=== PATIENT | male | born 1950 ===

== ENCOUNTER → 2016-08-08 | Outpatient (REF) ==
[2016-08-08 10:36] LABS: INR 1.1 (0.8-3.0); PROTHROMBIN TIME 12.6 SECONDS (9.7-12.8)
== END ==
LOC: ZMSC 10:20
PROVIDERS: Orthopaedic Surgery
DX: Z01.89 Encounter for other specified special examinations (principal)

== ENCOUNTER → 2016-08-09 | Outpatient (REF) ==
[2016-08-09 06:26] LABS: INR 1.2 (0.8-3.0); PROTHROMBIN TIME 13.9 SECONDS (9.7-12.8)
== END ==
LOC: ZMSC 06:20
PROVIDERS: Orthopaedic Surgery
DX: Z01.89 Encounter for other specified special examinations (principal)

== ENCOUNTER → 2016-08-10 | Outpatient (REF) ==
[2016-08-10 05:46] LABS: INR 1.2 (0.8-3.0); PROTHROMBIN TIME 13.9 SECONDS (9.7-12.8)
== END ==
LOC: ZMSC 05:34
PROVIDERS: Orthopaedic Surgery
DX: Z01.89 Encounter for other specified special examinations (principal)

== ENCOUNTER → 2016-08-11 | Outpatient (REF) ==
[2016-08-11 05:30] LABS: INR 1.4 (0.8-3.0); PROTHROMBIN TIME 15.8 SECONDS (9.7-12.8)
== END ==
LOC: ZMSC 05:25
PROVIDERS: Orthopaedic Surgery
DX: Z01.89 Encounter for other specified special examinations (principal)

== ENCOUNTER → 2017-01-23 | Outpatient (REF) ==
[2017-01-23 07:00] LABS: INR 1.1 (0.8-3.0); PROTHROMBIN TIME 12.2 SECONDS (9.7-12.8)
== END ==
LOC: ZMSC 06:53
PROVIDERS: Orthopaedic Surgery
DX: Z02.89 Encounter for other administrative examinations (principal)